=== PATIENT | male | born 2000 | race Caucasian/White ===

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

== ENCOUNTER 2018-02-18 01:11 | Emergency (ER) | payer MEDICAID, OTHER ==
[2018-02-18 02:15] LABS: ACETAMINOPHEN < 2 ug/mL (10-30)
--- NOTE | 2018-02-18 07:57 | EDM.PDOC ---
ED HPI GENERAL MEDICAL PROBLEM - General Chief Complaint: Drug or Alcohol Abuse Stated Complaint: TOOK SOME PILLS Time Seen by Provider: 02/18/18 01:30 Source of Information: Reports: Patient, Other (2 GIRLS WHO ARE FRIENDS WHO BECAME CONCERNED AFTER THEY LEARNED THAT HE HAD AT 7 PM INGEST 800 MG OF ZOLOFT , DRUNK 10 OZ OF RUM, (ONE OF HIS FRIENDS WAS DRINKING WITH HIM) DRUNK 4 SHOTOF VODKA, AND INGESTED 4 TAB OF 0.5MG XANAX, HE WAS NOTA DEPRESSED NOR WAS HE OR IS HE SUCIDAL , BUTR WAS DRINKING RECREATIONALLY) History Limitations: Reports: No Limitations - History of Present Illness INITIAL COMMENTS - FREE TEXT/NARRATIVE: ALERT SEE ABOVE INGESTION OF XS OFETOH, 2 MG OF XANEX, 800 MG OF ZOFLOT, [facility] CONTR[facility] CALLED AND WERE NOT CONCERND ABOUT SIDE EFFECT THE POTENTIAL FOR SEDATION WAS MINIMAL THE POTENTIAL FOR SERIOUS SIDE EFFECTS HAD PASSED Onset: Gradual Onset Date: 02/17/18 Onset Time: 19:00 Duration: Hour(s): (6.5 HRS AGO) Associated Symptoms: Reports: No Other Symptoms Treatments TUB PULLER: Reports: Other (see below) (NONE) - Related Data Allergies Allergy/AdvReac Type Severity Reaction Status Date / Time No Known Allergies Allergy Verified 11/25/17 01:15 Home Meds: Home Meds ALPRAZolam [Alprazolam] 0.25 mg PO DAILY PRN 11/25/17 [History] ALPRAZolam [Xanax] 0.25 mg PO BID PRN #15 tablet 11/25/17 [Rx] Sertraline HCl 50 mg PO BEDTIME 11/25/17 [History] Venlafaxine HCl [Venlafaxine ER] 37.5 mg PO DAILY 11/25/17 [History] hydrOXYzine HCl [Atarax] 0 mg PO ASDIRECTED 02/18/18 [History] Past Medical History Psychiatric History: Reports: Anxiety, Depression Social & Family History - Family History Family Medical History: Noncontributory Cardiac: Reports: [place] - Tobacco Use Smoking Status *Q: Current Every Day Smoker Years of Tobacco use: 1 Packs/Tins Daily: 0.5 - Caffeine Use Caffeine Use: Reports: Coffee, Soda Caffeine Use Comment: states that he took some stimulant tonight, caffiene and took a big cup of coffee. - Alcohol Use Days Per Week of Alcohol Use: 1 Number of Drinks Per Day: 5 Total Drinks Per Week: 5 - Recreational Drug Use Recreational Drug Use: No ED ROS GENERAL - Review of Systems Review Of Systems: See Below Constitutional: Reports: No Symptoms HEENT: Reports: No Symptoms Respiratory: Reports: No Symptoms Cardiovascular: Reports: No Symptoms Endocrine: Reports: No Symptoms GI/Abdominal: Reports: No Symptoms : Reports: No Symptoms Musculoskeletal: Reports: No Symptoms Skin: Reports: No Symptoms Neurological: Reports: No Symptoms Psychiatric: Reports: No Symptoms, Other (PMHX DEPRESSION BUT NOT SUICIDAL) Hematologic/Lymphatic: Reports: No Symptoms Immunologic: Reports: No Symptoms Free Text/Narrative/Comment: NEGATIVE RE SIGECAPS DEPRESSION INVENTORY - Physical Exam Exam: See Below Text/Narrative:: ALERT, PLEASANT, APPROPRIATELY DRESSED, CLEAN WITH MILD FACIAL FLUSHING AND MODERATE INJECTION OF HIS SCLERAE Exam Limited By: No Limitations General Appearance: Alert, No Apparent Distress Eye Exam: Bilateral Eye: Normal Fundi, Normal Inspection Ears: Normal External Exam Nose: Normal Inspection Throat/Mouth: Normal Inspection Head Exam: Atraumatic Neck: Normal Inspection Respiratory/Chest: No Respiratory Distress Cardiovascular: Normal Peripheral Pulses GI/Abdominal: Normal Bowel Sounds (Male) Exam: No Hernia, Normal Inspection Neuro Exam (Abbreviated): Alert, Oriented, CN II-XII Intact, Normal Cognition, Normal Gait, Normal Reflexes, No Motor/Sensory Deficits DTR: 1+: Bicep (R), Bicep (L), Tricep (R), Tricep (L), Patella (R), Patella (L) , Achilles (R), Achilles (L) Back Exam: Normal Inspection Extremities: Normal Inspection Psychiatric: Normal Affect Skin Exam: Warm, Dry, Intact, Normal Color Course - Vital Signs Last Recorded V/S: Last Vital Signs Temp 36.6 C 02/18/18 02:35 Pulse 105 H 02/18/18 02:35 Resp 18 02/18/18 02:35 BP 126/79 02/18/18 02:35 Pulse Ox 99 02/18/18 02:35 - Orders/Labs/Meds Orders: Active Orders 24 hr Category Date Time Status DRUG SCREEN, URINE ALERE [URCHEM] Urgent Lab 02/18/18 01:58 Ordered Labs: Laboratory Tests 08/12/18 08/12/18 08/12/18 Range/Units 01:50 01:50 01:58 Sodium 139 (135-145) mmol/L Potassium 3.7 (3.5-5.3) mmol/L Chloride 103 (100-110) mmol/L Carbon Dioxide 28 (21-32) mmol/L BUN 9 (7-18) mg/dL Creatinine 0.8 (0.70-1.30) mg/dL Est Cr Clr Drug Dosing 136.26 mL/min Estimated GFR (MDRD) > 60 (>60) BUN/Creatinine Ratio 11.3 (9-20) Glucose 102 (80-116) mg/dL Calcium 9.3 (8.2-10.1) mg/dL Total Bilirubin 0.4 (0.1-1.2) mg/dL AST 20 D (5-25) IU/L ALT 21 D (12-36) U/L Alkaline Phosphatase 97 (56-112) IU/L Total Protein 8.7 H (6.0-8.0) g/dL Albumin 4.4 (3.2-4.5) g/dL Globulin 4.3 g/dL Albumin/Globulin Ratio 1.0 Salicylates 0.7 L (2.8-20.0) mg/dL Urine Opiates Screen Negative (NEGATIVE) Ur Oxycodone Screen Negative (NEGATIVE) Ur Propoxyphene Screen Negative (NEGATIVE) Acetaminophen < 2 L (10-30) ug/mL Ur Barbituates Screen Negative (NEGATIVE) Ur Tricyclics Screen Negative (NEGATIVE) Ur Phencyclidine Scrn Negative (NEGATIVE) Ur Amphetamine Screen Negative (NEGATIVE) Urine MDMA Screen Negative (NEGATIVE) U Benzodiazepines Scrn Positive H (NEGATIVE) U Cocaine Metab Screen Negative (NEGATIVE) U Marijuana (THC) Screen Negative (NEGATIVE) Ethyl Alcohol 0.19 H* (<0.03) % Departure - Departure Time of Disposition: 02:25 Disposition: Home, Self-Care 01 Condition: Good Clinical Impression: Elevated ETOH level, Depression - Discharge Information *PRESCRIPTION DRUG MONITORING PROGRAM REVIEWED*: No *COPY OF PRESCRIPTION DRUG MONITORING REPORT IN PATIENT FABRICE: No (DISMSSED WITH 2 RESPONSIBLE ADULTS) Instructions: Alcohol Intoxication, [id number] Referrals: PCP,Unknown [Primary Care Provider] - Forms: ED Department Discharge Additional Instructions: you have metabolized most of the medicinea you overdosed on Poison Control felt you could go home follow up with your MD next 4-7 days, earlier if worse - My Orders Last 24 Hours: My Active Orders 02/18/18 01:58 DRUG SCREEN, URINE ALERE [URCHEM] Urgent - Assessment/Plan Last 24 Hours: My Active Orders 02/18/18 01:58 DRUG SCREEN, URINE ALERE [URCHEM] Urgent
== END 2018-02-18 02:35 | disposition home or self-care (01) ==
LOC: FB.ED 01:11
DX: F10.129 Alcohol abuse with intoxication, unspecified (principal); Y90.6 Blood alcohol level of 120-199 mg/100 ml; F17.210 Nicotine dependence, cigarettes, uncomplicated; F41.9 Anxiety disorder, unspecified; F32.9 Major depressive disorder, single episode, unspecified; Z79.899 Other long term (current) drug therapy
CPT/HCPCS: 36415; 80053; 80305; 99284; G0480

== ENCOUNTER 2019-03-02 21:22 | Emergency (ER) | payer MEDICAID, OTHER ==
[2019-03-02] MEDS ORDERED: Ketorolac 60 MG/2 ML SDV IM ONE (21:38)
--- NOTE | 2019-03-02 23:08 | EDM.PDOC ---
ED HPI GENERAL MEDICAL PROBLEM - General Chief Complaint: Fever Stated Complaint: FEVER,CHILLS Time Seen by Provider: 03/02/19 23:03 Source of Information: Reports: Patient History Limitations: Reports: No Limitations - History of Present Illness INITIAL COMMENTS - FREE TEXT/NARRATIVE: 18 yo male with fever,body aches. Had closed reduction of nasal fracture at [facility] yesterday. Started with chills today,and temps upto 101. also ,has nasal pain not relieved by [place]. No cough. No chest pain,no purulent or clear rhinorrhea Nose Pain Score (Numeric/FACES): 8 - Related Data Allergies Allergy/AdvReac Type Severity Reaction Status Date / Time No Known Allergies Allergy Verified 03/02/19 21:34 Home Meds: Home Meds NK [No Known Home Meds] 03/02/19 [History] Past Medical History Psychiatric History: Reports: Anxiety, Depression - Past Surgical History HEENT Surgical History: Reports: Adenoidectomy, Naso-Sinus Surgery, Oral Surgery , Tonsillectomy Social & Family History - Family History Family Medical History: Noncontributory Cardiac: Reports: [place] - Tobacco Use Smoking Status *Q: Current Every Day Smoker Years of Tobacco use: 2 Packs/Tins Daily: 0.5 - Caffeine Use Caffeine Use: Reports: Tea Caffeine Use Comment: states that he took some stimulant tonight, caffiene and took a big cup of coffee. - Recreational Drug Use Recreational Drug Use: No ED ROS ENT - Review of Systems Review Of Systems: ROS reveals no pertinent complaints other than HPI. ED EXAM, ENT - Physical Exam Exam: See Below Exam Limited By: No Limitations General Appearance: Alert, WD/WN Nose: Nasal Swelling, Nasal Tenderness. No: Nasal Discharge, Septal Hematoma Mouth/Throat: Normal Inspection Head: Atraumatic, Normocephalic Neck: Normal Inspection, Supple, Non-Tender, Full Range of Motion Course - Vital Signs Last Recorded V/S: Last Vital Signs Temp 98.2 F 03/02/19 21:22 Pulse 105 H 03/02/19 21:22 Resp 18 03/02/19 21:22 BP 134/83 03/02/19 21:22 Pulse Ox 100 03/02/19 21:22 - Orders/Labs/Meds Orders: Active Orders 24 hr Category Date Time Status CBC WITH AUTO DIFF [HEME] Stat Lab 03/02/19 21:53 Received Labs: Laboratory Tests 03/02/19 03/02/19 Range/Units 21:53 21:53 Sodium 140 (135-145) mmol/L Potassium 3.6 (3.5-5.3) mmol/L Chloride 101 (100-110) mmol/L Carbon Dioxide 28 (21-32) mmol/L BUN 9 (7-18) mg/dL Creatinine 0.9 (0.70-1.30) mg/dL Est Cr Clr Drug Dosing 121.80 mL/min Estimated GFR (MDRD) > 60 (>60) BUN/Creatinine Ratio 10.0 (9-20) Glucose 96 (80-116) mg/dL Calcium 9.7 (8.6-10.2) mg/dL C-Reactive Protein 0.2 L (0.5-0.9) mg/dL Meds: Medications Discontinued Medications Generic Name Dose Route Start Last Admin Trade Name Freq PRN Reason Stop Dose Admin Ketorolac Tromethamine 60 mg 03/02/19 21:38 03/02/19 22:05 Toradol IM 03/02/19 21:39 60 mg ONETIME ONE Administration Departure - Departure Time of Disposition: 23:07 Disposition: Home, Self-Care 01 Condition: Good Clinical Impression: Fever - Discharge Information Referrals: PCP,None [Primary Care Provider] - - Problem List & Annotations (1) Fever SNOMED Code(s): 462243521 Code(s): R50.9 - FEVER, UNSPECIFIED Status: Acute Current Visit: Yes Qualifiers: Fever type: drug-induced Qualified Code(s): R50.2 - Drug induced fever (2) Nasal fracture SNOMED Code(s): 707411355 Code(s): S02.2XXA - FRACTURE OF NASAL BONES, INIT ENCNTR FOR CLOSED FRACTURE Status: Acute Current Visit: Yes Qualifiers: Encounter type: subsequent encounter - Problem List Review Problem List Initiated/Reviewed/Updated: Yes - My Orders Last 24 Hours: My Active Orders 03/02/19 21:53 CBC WITH AUTO DIFF [HEME] Stat - Assessment/Plan Last 24 Hours: My Active Orders 03/02/19 21:53 CBC WITH AUTO DIFF [HEME] Stat Plan: Patient responded well to Ketoralac. CRP less o.2. CBC pending. He is taking Amoxicillin. I advised him o add Motrin or Naproxen.
== END 2019-03-02 23:20 | disposition home or self-care (01) ==
LOC: FB.ED 21:22
DX: R50.9 Fever, unspecified (principal); F17.210 Nicotine dependence, cigarettes, uncomplicated
CPT/HCPCS: 36415; 80048; 85025; 86140; 96372; 99283; J1885

== ENCOUNTER 2019-06-07 17:18 | Emergency (ER) | payer MEDICAID ==
[2019-06-07] MEDS ORDERED: LORazepam 1 MG Tab PO ONE (18:01)
--- NOTE | 2019-06-07 18:01 | EDM.PDOC ---
ED HPI GENERAL MEDICAL PROBLEM - General Stated Complaint: ANXIETY Time Seen by Provider: 06/07/19 17:20 Source of Information: Reports: Patient History Limitations: Reports: No Limitations - History of Present Illness INITIAL COMMENTS - FREE TEXT/NARRATIVE: pt with long hx of anxiety and depression, comes to ER basically asking for treatment of his anxiety, states he is from [place] and visiting family here over [place] and has been out of his clonazepam. pt report feeling restless today and anxious , denies any suicidal ideations or hallucinations or any other associated sx or medical concerns. - Related Data Allergies Allergy/AdvReac Type Severity Reaction Status Date / Time No Known Allergies Allergy Verified 03/02/19 21:34 Home Meds: Home Meds NK [No Known Home Meds] 03/02/19 [History] Past Medical History Psychiatric History: Reports: Anxiety, Depression - Past Surgical History HEENT Surgical History: Reports: Adenoidectomy, Naso-Sinus Surgery, Oral Surgery , Tonsillectomy Social & Family History - Family History Family Medical History: Noncontributory Cardiac: Reports: [place] - Caffeine Use Caffeine Use: Reports: Tea Caffeine Use Comment: states that he took some stimulant tonight, caffiene and took a big cup of coffee. ED ROS GENERAL - Review of Systems Review Of Systems: See Below Constitutional: Reports: No Symptoms. Denies: Fever, Fatigue HEENT: Reports: No Symptoms Respiratory: Reports: No Symptoms Cardiovascular: Reports: No Symptoms GI/Abdominal: Reports: No Symptoms Musculoskeletal: Reports: No Symptoms Skin: Reports: No Symptoms Neurological: Reports: No Symptoms Psychiatric: Reports: Anxiety. Denies: Agitation, Confusion, Hallucinations, Homicidal Ideation, Suicidal Ideation ED EXAM, GENERAL - Physical Exam Exam: See Below Exam Limited By: No Limitations General Appearance: Anxious. No: Mild Distress, Moderate Distress Ears: Normal External Exam, Normal TMs Nose: Normal Inspection Throat/Mouth: Normal Inspection, Normal Oropharynx Head: Atraumatic Neck: Normal Inspection, Supple, Non-Tender Respiratory/Chest: No Respiratory Distress, Lungs Clear, Normal Breath Sounds Cardiovascular: Normal Peripheral Pulses, Regular Rate, Rhythm GI/Abdominal: Normal Bowel Sounds, Soft, Non-Tender Back Exam: Normal Inspection, Full Range of Motion Extremities: Normal Inspection Neurological: Alert, Oriented, CN II-XII Intact Skin Exam: Warm, Dry Course - Vital Signs Text/Narrative:: pt has anxiety sx and stable for out pt mng. was given ativan here and was asked to follow with PCP for refill on usual medications. Departure - Departure Time of Disposition: 18:01 Disposition: Home, Self-Care 01 Clinical Impression: Anxiety - Discharge Information
== END 2019-06-07 19:10 | disposition home or self-care (01) ==
LOC: FB.ED 17:18
DX: F41.9 Anxiety disorder, unspecified (principal)
CPT/HCPCS: 99283; A9270

== ENCOUNTER 2019-06-11 18:26 | Emergency (ER) | payer MEDICAID ==
--- NOTE | 2019-06-11 19:15 | EDM.PDOC ---
ED HPI GENERAL MEDICAL PROBLEM - General Chief Complaint: Chest Pain Time Seen by Provider: 06/11/19 18:30 Source of Information: Reports: Patient History Limitations: Reports: No Limitations - History of Present Illness INITIAL COMMENTS - FREE TEXT/NARRATIVE: Patient presented to the ED because of a panic attack. he has a h/o anxiety and depression and he atleast have 1 anxiety attack/week. He is taking paxil 40 mg daily. He was hyperventilating when he arrived and c/o peripheral numbness, tingling,dyspnea and chest tightness. chest Pain Score (Numeric/FACES): 4 - Related Data Allergies Allergy/AdvReac Type Severity Reaction Status Date / Time No Known Allergies Allergy Verified 03/02/19 21:34 Home Meds: Home Meds NK [No Known Home Meds] 03/02/19 [History] Past Medical History Psychiatric History: Reports: Anxiety, Depression - Past Surgical History HEENT Surgical History: Reports: Adenoidectomy, Naso-Sinus Surgery, Oral Surgery , Tonsillectomy Social & Family History - Family History Family Medical History: Noncontributory Cardiac: Reports: [place] - Caffeine Use Caffeine Use: Reports: Tea Caffeine Use Comment: states that he took some stimulant tonight, caffiene and took a big cup of coffee. ED ROS GENERAL - Review of Systems Review Of Systems: See Below Constitutional: Reports: No Symptoms HEENT: Reports: No Symptoms Respiratory: Reports: No Symptoms Cardiovascular: Reports: Chest Pain Endocrine: Reports: No Symptoms GI/Abdominal: Reports: No Symptoms : Reports: No Symptoms Musculoskeletal: Reports: No Symptoms Skin: Reports: No Symptoms Neurological: Reports: No Symptoms Psychiatric: Reports: Anxiety, Depression, Mood Lability Hematologic/Lymphatic: Reports: No Symptoms Immunologic: Reports: No Symptoms ED EXAM, GENERAL - Physical Exam Exam: See Below Exam Limited By: No Limitations General Appearance: Alert, WD/WN, No Apparent Distress Eye Exam: Bilateral Eye: PERRL Ears: Normal External Exam, Normal Canal, Hearing Grossly Normal, Normal TMs Nose: Normal Inspection, Normal Mucosa, No Blood Throat/Mouth: Normal Inspection, Normal Lips, Normal Teeth, Normal Oropharynx, Normal Voice Head: Atraumatic, Normocephalic Neck: Normal Inspection, Supple, Non-Tender Respiratory/Chest: No Respiratory Distress, Lungs Clear, Normal Breath Sounds, No Accessory Muscle Use, Chest Non-Tender Cardiovascular: Normal Peripheral Pulses, Regular Rate, Rhythm, No Edema, No Gallop, No JVD, No Murmur, No Rub GI/Abdominal: Normal Bowel Sounds, Soft, Non-Tender, No Organomegaly, No Distention, No Abnormal Bruit Back Exam: Normal Inspection Psychiatric: Normal Affect, Normal Mood Skin Exam: Warm, Dry, Intact, Normal Color Course - Vital Signs Text/Narrative:: EKG-NSR Ativan 1 mg IM x1 Last Recorded V/S: Last Vital Signs Temp 36.7 C 06/11/19 18:26 Pulse 110 H 06/11/19 19:20 Resp 14 06/11/19 19:20 BP 136/85 06/11/19 19:20 Pulse Ox 100 06/11/19 19:20 - Orders/Labs/Meds Meds: Medications Discontinued Medications Generic Name Dose Route Start Last Admin Trade Name Freq PRN Reason Stop Dose Admin Lorazepam 1 mg 06/11/19 19:03 06/11/19 19:20 Ativan IM 1 mg ONETIME PRN Administration Anxiety Departure - Departure Time of Disposition: 19:30 Disposition: Home, Self-Care 01 Condition: Good Clinical Impression: Panic attacks, Atypical chest pain, Anxiety Instructions: Generalized Anxiety Disorder, Adult, Panic Attack, [id number] Referrals: PCP,None [Primary Care Provider] - Forms: ED Department Discharge Additional Instructions: please read discharge instructions on anxiety and panic attack continue paxil follow up with your doctor they can add another medicine for your anxiety
[2019-06-11] MEDS: LORazepam 2 MG/ML SDV IM PRN (19:20)
== END 2019-06-11 19:33 | disposition home or self-care (01) ==
LOC: FB.ED 18:26
DX: F41.0 Panic disorder [episodic paroxysmal anxiety] (principal)
CPT/HCPCS: 96372; 99285; J2060